=== PATIENT | female | born 1945 | race Caucasian/White ===

== ENCOUNTER 2017-02-18 06:45 | Emergency (ER) | payer MEDICARE, MEDICAID ==
[~2017-02-18] VITALS: Ht 157.5 cm; Wt 107.0 kg
[~2017-02-18 06:45] MED LIST: CHOL50006; DICL100G5; DIPH1TAB24; FERR325T30; FURO40TA5; HYDR-4005; METF500T4; POTA20TA82; VALS1TAB76
[2017-02-18] MEDS ORDERED: HYDROCODONE/ACETAMINOPHEN 5/325MG TABLET PO ONE (08:30)
[2017-02-18 09:05] VITALS: BP 166/91
== END 2017-02-18 09:07 | disposition home or self-care (01) ==
LOC: ER 07:19
DX: M54.2 Cervicalgia (principal); M19.90 Unspecified osteoarthritis, unspecified site; I10 Essential (primary) hypertension
CPT/HCPCS: 99283